=== PATIENT | male | born 1945 | race Caucasian/White ===

== ENCOUNTER 2022-01-22 23:02 | Emergency (ER) | payer MEDICARE, OTHER ==
[2022-01-22] MEDS ORDERED: Aspirin 81 MG Tab.Chew PO ONE (23:10)
[2022-01-22] MEDS ORDERED: Sodium Chloride 0.9% 10 ML Syringe FLUSH PRN (23:10)
[2022-01-22] MEDS ORDERED: Morphine 4 MG/ML Syringe IVPUSH PRN (23:10)
[2022-01-22 23:39] LABS: ESTIMATED GFR 77 mL/min (>60); TROPONIN I HIGH SENSITIVITY 44.8 pg/mL (<=60.3)
== END 2022-01-23 02:45 | disposition home or self-care (01) ==
LOC: JP.ED 23:02
DX: U07.1 COVID-19 (principal); I25.10 Atherosclerotic heart disease of native coronary artery without angina pectoris; E78.00 Pure hypercholesterolemia, unspecified; I10 Essential (primary) hypertension; I25.2 Old myocardial infarction; Z87.891 Personal history of nicotine dependence; Z79.899 Other long term (current) drug therapy; Z79.82 Long term (current) use of aspirin
CPT/HCPCS: 36415; 71045; 80053; 84484; 85025; 93005; 96374; 99285; A9270; J2270; J3490; U0002